=== PATIENT | male | born 1965 | race Hispanic/Latino ===

== ENCOUNTER 2017-12-03 11:35 | Emergency (ER) | payer SELFPAY ==
[2017-12-03] MEDS ORDERED: MORPHINE IV ONE ×2 (12:56→13:00)
[2017-12-03] MEDS ORDERED: ZOFRAN IV ONE (12:56)
[2017-12-03] MEDS ORDERED: NACL 0.9% 1000 ML 1,000 ML IV ONE (12:56)
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
[2017-12-03 13:32] LABS: Basophils % (Auto) 0.7 % (0.0-1.8); Eosinophils # (Auto) 0.1 K/mm3 (0.0-0.4); Hematocrit 35.3 % (35.5-45.6); Lymphocytes # (Auto) 1.3 K/mm3 (1.2-5.4); Lymphocytes % (Auto) 23.7 % (13.4-35.0); Mean Corpuscular HGB Conc 34 % (32-34); Mean Corpuscular Hemoglobin 32 pg (28-32); Mean Corpuscular Volume 93 fl (84-94); Monocytes # (Auto) 0.7 K/mm3 (0.0-0.8); Monocytes % (Auto) 12.3 % (0.0-7.3); Platelet Count 172 K/mm3 (140-440); Red Blood Count 3.79 M/mm3 (3.65-5.03); Red Cell Distribution Width 14.7 % (13.2-15.2)
[2017-12-03 13:53] LABS: Alanine Aminotransferase 18 units/L (7-56); Albumin 3.5 g/dL (3.9-5); BUN/Creatinine Ratio 11; Blood Urea Nitrogen 10 mg/dL (9-20); Calcium 7.9 mg/dL (8.4-10.2); Hemolysis Index 6
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
--- NOTE | 2017-12-03 15:33 | XRay Report ---
FINAL REPORT EXAM: XR SHOULDER 2+V LT HISTORY: shoulder deformity/pain TECHNIQUE: 3 views of left shoulder. PRIORS: None. FINDINGS: No apparent fracture or dislocation. Postsurgical change and fusion hardware in lower cervical spine. Joint spaces maintained. Soft tissues grossly unremarkable. IMPRESSION: 1. No acute osseous abnormality.
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
--- NOTE | 2017-12-03 15:43 | Cat Scan Report ---
FINAL REPORT EXAM: CT ABDOMEN PELVIS W CON HISTORY: trauma, abd pain TECHNIQUE: Axial images were performed from the lung bases to the pubic symphysis. Multiplanar reformats are performed on the acquisition scanner. Comparison: CT chest same day showing right lateral rib fractures and T8 acute compression fracture/burst type fracture without retropulsion. FINDINGS: Small layering right pleural effusion. No pneumothorax. Right lateral 7th through 9th rib fractures are displaced by approximately 1/2 shaft with. No lumbar compression fractures are identified. There is a limbus vertebra at L4. There is focal fat around the fissure for the ligamentum teres in the liver. Liver is mildly diffusely fatty infiltrated. There are dependent gallstones in the very distended gallbladder. There is normal enhancement and appearance of the spleen, pancreas, bilateral adrenal glands, and bilateral kidneys. There may be very early contrast excretion from the kidneys or small medullary stones bilaterally. The aorta and mesenteric vessels enhance normally. There is mild atherosclerotic occlusive disease of the aorta. There are air bubbles around the distal common duct in the pancreatic head. Presumably this is due to a benign duodenal diverticulum as there is no evidence for. Pancreatic land earlier stranding or edema. There is no free air. There is no retroperitoneal free gas. This is best seen on coronal sequence image 67 and will need to be further followed up. There is no free peritoneal air. There is no free fluid. There is sigmoid diverticulosis. Normal air-filled appendix right lower quadrant. There is collapse of the ascending colon just distal to the cecum with limited assessment of the wall due to the collapse. A right colon mass cannot be excluded. There are small pericecal lymph nodes. Urinary bladder is moderately distended and mildly diffusely thick-walled. There is a small left inguinal hernia containing fat. Prostate is not enlarged. No pelvic fractures identified. IMPRESSION: Known T8 vertebral body fracture. Known right lateral 7th through 9th lateral displaced rib fractures. No fractures of the abdomen or pelvis. No free air in the peritoneal space. Air bubbles around the distal common duct at the pancreatic head/uncinate, presumably within a collapsed duodenal diverticulum. This will need to be followed up. There is no acute CT evidence of pancreatic injury on the current exam. The gallbladder is extremely distended and there are dependent gallstones. No other evidence for retroperitoneal free air is identified. Collapsed proximal ascending colon. Mass cannot be excluded. If the patient has not had a baseline colonoscopy, once he is stabilized, screening colonoscopy should be performed. Thick-walled urinary bladder without prostatic enlargement. Sigmoid diverticulosis. Left inguinal hernia containing fat. Bilateral renal medullary stones versus early excretion of contrast. L4 limbus vertebra. 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 Fatty infiltrated liver with focal fat around the fissure for the ligamentum teres. Findings are called and discussed with the ER physician on 12/03/2017 at 1537 hours.
--- NOTE | 2017-12-03 15:44 | XRay Report ---
FINAL REPORT EXAM: XR HAND 3+V RT HISTORY: hand pain, swelling TECHNIQUE: Three views of the right hand were submitted. FINDINGS: There is no evidence of fracture or soft tissue injury. The wrist joint is well maintained. IMPRESSION: Within normal limits.
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
--- NOTE | 2017-12-03 15:56 | XRay Report ---
FINAL REPORT EXAM: XR KNEE 4+V LT HISTORY: pain, swelling of knee TECHNIQUE: Six views left knee Comparison: None FINDINGS: Normal bony mineralization. Diffuse soft tissue reticulation especially noted in the prepatellar and suprapatellar region without definite patellar fracture or dislocation identified. There appears to be soft tissue reticulation medial to the patella at the patellofemoral margin slightly laterally displacing the patella and the patellofemoral groove. The knee joint itself is preserved. IMPRESSION: Soft tissue swelling especially prepatellar and suprapatellar without definite patellar fracture or dislocation. There is mild lateral displacement of the patella within the patellofemoral groove by the soft tissue swelling. No fracture about the knee.
--- NOTE | 2017-12-03 15:57 | XRay Report ---
FINAL REPORT EXAM: XR FEMUR 2+V LT HISTORY: leg pain, swelling TECHNIQUE: Four views left femur Comparison: None FINDINGS: Normal bony mineralization. No fracture or dislocation. Superficial point of hip left subcutaneous 10 millimeter injection granuloma likely from previous trauma or injection. No disruption of the imaged portion of the bony pelvic ring. No radiopaque foreign body or soft tissue gas. IMPRESSION: No acute fracture or dislocation.
--- NOTE | 2017-12-03 16:00 | XRay Report ---
FINAL REPORT EXAM: XR TIBIA FIBULA 2V LT HISTORY: leg pain, swelling TECHNIQUE: Four views left tibia and fibula Comparison: None FINDINGS: Diffuse soft tissue reticulation without proximal fracture or dislocation. There is mild irregularity over the distal lateral tibial cortex with a bone chip measuring 14 x 7 millimeters which may be related to previous trauma. Soft tissue swelling about the ankle. No definite ankle joint effusion. Prepatellar and suprapatellar soft tissue swelling. IMPRESSION: Cortical irregularity of the distal lateral tibial diametaphyseal with apparent bone chip which may be related to previous trauma in the region the interosseous membrane incompletely assessed. There is diffuse soft tissue swelling without definite ankle joint effusion. Recommend dedicated ankle films to include this region. This exam and the left foot series will be called to the referring clinician. Alejandro Level 2.
[2017-12-03] MEDS ORDERED: CLEOCIN 900 MG/50 mL 900 MG/50 ML BAG IV ONE (16:43)
[2017-12-03 17:44] VITALS: BP 174/112
== END 2017-12-03 17:48 | disposition short-term general hospital (02) ==
LOC: ED 11:35
DX: S22.061A Stable burst fracture of T7-T8 vertebra, initial encounter for closed fracture (principal); S22.41XA Multiple fractures of ribs, right side, initial encounter for closed fracture; S27.1XXA Traumatic hemothorax, initial encounter; S46.912A Strain of unspecified muscle, fascia and tendon at shoulder and upper arm level, left arm, initial encounter; S46.911A Strain of unspecified muscle, fascia and tendon at shoulder and upper arm level, right arm, initial encounter; S86.812A Strain of other muscle(s) and tendon(s) at lower leg level, left leg, initial encounter; S86.811A Strain of other muscle(s) and tendon(s) at lower leg level, right leg, initial encounter; S16.1XXA Strain of muscle, fascia and tendon at neck level, initial encounter; S39.011A Strain of muscle, fascia and tendon of abdomen, initial encounter; F10.920 Alcohol use, unspecified with intoxication, uncomplicated; R51 Headache; V29.9XXA Motorcycle rider (driver) (passenger) injured in unspecified traffic accident, initial encounter; Y93.I9 Activity, other involving external motion; Y99.8 Other external cause status; Y92.410 Unspecified street and highway as the place of occurrence of the external cause
CPT/HCPCS: 36415; 70450; 71260; 72125; 73030; 73130; 73552; 73564; 73590; 73630; 74177; 80053; 85025; 96361; 96374; 96375; 99285; G0480; J2270; J2405; J7030; Q9967; 80320

== ENCOUNTER 2017-12-11 11:06 | Emergency (ER) | payer OTHER ==
[2017-12-11 12:00] LABS: Eosinophils # (Auto) 0.1 K/mm3 (0.0-0.4); Eosinophils % (Auto) 2.1 % (0.0-4.3); Hematocrit 40.6 % (35.5-45.6); Hemoglobin 13.5 gm/dl (11.8-15.2); Lymphocytes # (Auto) 1.4 K/mm3 (1.2-5.4); Lymphocytes % (Auto) 29.6 % (13.4-35.0); Mean Corpuscular HGB Conc 33 % (32-34); Mean Corpuscular Hemoglobin 31 pg (28-32); Mean Corpuscular Volume 94 fl (84-94); Monocytes # (Auto) 0.6 K/mm3 (0.0-0.8); Monocytes % (Auto) 13.5 % (0.0-7.3); Platelet Count 283 K/mm3 (140-440); Red Blood Count 4.33 M/mm3 (3.65-5.03); Red Cell Distribution Width 15.2 % (13.2-15.2)
--- NOTE | 2017-12-11 12:09 | XRay Report ---
Chest 2 views: History: Shortness of breath. Findings: Normal cardiomediastinal silhouette. Trachea is midline. No consolidation, pneumothorax or pleural effusion. Impression: No acute cardiopulmonary findings.
[2017-12-11 12:15] LABS: BUN/Creatinine Ratio 14; Blood Urea Nitrogen 10 mg/dL (9-20); Calcium 8.9 mg/dL (8.4-10.2); Hemolysis Index 5
[2017-12-11] MEDS ORDERED: MORPHINE IV ONE (12:42)
[2017-12-11] MEDS ORDERED: TORADOL IV ONE (12:42)
[2017-12-11] MEDS ORDERED: ZOFRAN IV ONE (12:42)
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
[2017-12-11 15:51] VITALS: BP 155/94
== END 2017-12-11 15:51 | disposition home or self-care (01) ==
LOC: ED 11:06
DX: R07.89 Other chest pain (principal); M25.562 Pain in left knee; Z87.891 Personal history of nicotine dependence
CPT/HCPCS: 36415; 71046; 73562; 80048; 85025; 93005; 93010; 96374; 96375; 99284; J1885; J2270; J2405

== ENCOUNTER 2018-03-13 16:03 | Emergency (ER) | payer SELFPAY ==
--- NOTE | 2018-03-13 20:23 | Ultrasound Report ---
FINAL REPORT EXAM: US TESTICULAR DOPPLER COMP HISTORY: pain . Patient complains of a painful intermittent lump in the left groin. Sometimes the lump is quite large. Not currently present today. TECHNIQUE: Ultrasound of scrotum PRIORS: None. FINDINGS: Examination of the testicles demonstrates both to be normal in size and normal and homogeneous in echogenicity with normal blood flow bilaterally. No focal abnormality is noted in either testicle. The right testicle measures 4.0 x 2.0 x 3.0 cm and the left measures 3.7 x 2.3 x 3.7 cm. Both epididymides appear normal in size and echogenicity with normal blood flow. There is a large cyst in the head of the left epididymis measuring 1.1 x 0.8 x 0.9 cm. No evidence for varicoceles are present bilaterally. Bilateral small hydroceles identified which are nonspecific. Evaluation of the left groin region was performed in the usual area of palpable concern and the area pain. However, there is no solid or cystic focal abnormality this region. No evidence for varicocele is present with Valsalva maneuver in this region. IMPRESSION: Left epididymal head cyst. Otherwise, negative testicular ultrasound. No abnormality in the left groin region is seen
[2018-03-13 22:08] LABS: Bilirubin,Urine NEG (Negative); Blood,Urine SM (Negative); Color,Urine Yellow (Yellow); Protein,Urine <15 mg/dL mg/dL (Negative); Urobilinogen,Urine < 2.0 mg/dL (<2.0); WBC,Urine < 1.0 /HPF (0.0-6.0)
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
[2018-03-13 22:51] VITALS: BP 160/96
== END 2018-03-13 22:50 | disposition home or self-care (01) ==
LOC: ED 16:03
DX: K40.90 Unilateral inguinal hernia, without obstruction or gangrene, not specified as recurrent (principal)
CPT/HCPCS: 81001; 93975; 99284

== ENCOUNTER 2020-06-14 02:10 | Emergency (ER) | payer SELFPAY ==
--- NOTE | 2020-06-14 04:24 | XRay Report ---
Left hand 3 views INDICATION: Left hand pain following injury IMPRESSION: No fracture or subluxation appreciated. Right elbow 3 views INDICATION: Right elbow pain IMPRESSION: Tiny elbow effusion. No fracture or subluxation Right hip 3 views INDICATION: Right hip pain following injury IMPRESSION: No fracture or subluxation. Right shoulder 2 views INDICATION: Right shoulder pain following injury IMPRESSION: No fracture or subluxation. Signer Name: Naga Delatorre MD Signed: 06/14/2020 4:20 AM Workstation Name: [id number]
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
[2020-06-14] MEDS ORDERED: KETOROLAC 30 MG/1 ML INJ IM ONE (08:19)
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
[2020-06-14 10:25] VITALS: BP 114/82
== END 2020-06-14 10:25 | disposition home or self-care (01) ==
LOC: ED 02:10
DX: S09.90XA Unspecified injury of head, initial encounter (principal); T07.XXXA Unspecified multiple injuries, initial encounter; M25.551 Pain in right hip; M79.601 Pain in right arm; M25.542 Pain in joints of left hand; Z79.899 Other long term (current) drug therapy; Z90.49 Acquired absence of other specified parts of digestive tract; Z98.890 Other specified postprocedural states; W10.9XXA Fall (on) (from) unspecified stairs and steps, initial encounter; Y93.89 Activity, other specified; Y92.89 Other specified places as the place of occurrence of the external cause; Y99.8 Other external cause status
CPT/HCPCS: 70450; 72125; 73030; 73080; 73130; 73502; 73562; 96372; 99284; J1885